=== PATIENT | male | born 1960 | race Caucasian/White ===

== ENCOUNTER 2020-06-24 22:06 | Inpatient (IN) ==
[2020-06-24] MEDS ORDERED: SODIUM CHLORIDE 0.9% 500 ML IV SCH (22:45)
[2020-06-24 22:53] LABS: Basophils # (auto) 0.02 K/uL (0-0.2); Basophils % (auto) 0.1 %; Eosinophils # (auto) 0.07 K/uL (0-0.5); Eosinophils % (auto) 0.5 %; Hematocrit (blood only) 46.1 % (42-52); Hemoglobin 16.4 g/dL (14.0-18.0); Immature Granulocytes # (auto) 0.11 K/uL (0.00-0.02); Immature Granulocytes % (auto) 0.8 %; Lymphocytes # (auto) 1.72 K/uL (1.2-3.4); Lymphocytes % (auto) 12.2 %; Mean Corpuscular Hemoglobin 32.5 pg (25-34); Mean Corpuscular Hgb Conc 35.6 g/dL (32-36); Mean Corpuscular Volume 91.5 fL (80-100); Mean Platelet Volume 11.8 fL (7.4-10.4); Monocytes # (auto) 0.77 K/uL (0.11-0.59); Monocytes % (auto) 5.5 %; Neutrophils # (auto) 11.41 K/uL (1.4-6.5); Neutrophils % (auto) 80.9 %; Platelet Count 196 K/uL (130-400); RDW Coefficient of Variation 13.4 % (11.5-14.5); RDW Standard Deviation 45.3 fL (36.4-46.3); Red Blood Count 5.04 M/uL (4.7-6.1)
[2020-06-24 22:58] LABS: Albumin Level 3.9 gm/dl (3.4-5.0); BUN Creatinine Ratio 10.6 (10-20); Creatinine Clr Calc Pharmacy 90.7 ml/min; Est GFR (African American) 74.2; Potassium 3.4 mmol/L (3.5-5.1)
[2020-06-24 23:01] LABS: Albumin Globulin Ratio 1.1 (0.9-2); Bilirubin,Total 0.3 mg/dl (0.2-1); Globulin 3.5 gm/dl (2.5-4.0); Total Protein 7.4 gm/dl (6.4-8.2)
[2020-06-24 23:03] LABS: Partial Thromboplastin Ratio 0.9; Partial Thromboplastin Time 24.9 Seconds (21.0-31.0); Prothrombin Time 10.8 Seconds (9.0-12.0)
[2020-06-24] MEDS ORDERED: IOVERSOL 100ml IV ONE (23:16)
[2020-06-25] MEDS ORDERED: ACETAMINOPHEN 1,000 MG/100 ML VIAL IV STA (00:01)
[2020-06-25] MEDS ORDERED: OPTIRAY 320 125ml IV ONE (00:46)
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
[2020-06-25] MEDS ORDERED: MoRPHine SULFATE 2 MG/ML CARP IV STA (03:32)
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
[2020-06-25] MEDS ORDERED: NITROGLYCERIN SL 0.4 MG/TAB TAB SL PRN (04:58)
[2020-06-25] MEDS ORDERED: ONDANSETRON INJ 2 MG/ML 2 ML VIAL IV PRN (04:58)
[2020-06-25] MEDS ORDERED: ACETAMINOPHEN 325 MG TAB PO PRN (04:58)
[2020-06-25] MEDS ORDERED: MAGNESIUM HYDROXIDE SUSP 30 ML UDC PO PRN (04:58)
[2020-06-25] MEDS ORDERED: ALUMINUM/MAGNESIUM SUSP 30 ML UDC PO PRN (04:58)
[2020-06-25] MEDS ORDERED: IBUPROFEN 200 MG TAB PO PRN (06:03)
[2020-06-25] MEDS: SODIUM CHLORIDE 0.9% 500 ML IV SCH ×2 (06:19→10:40)
[2020-06-25] MEDS: POTASSIUM ACETATE 10 MEQ in 0.9 % SODIUM CHLORIDE 100 ML IV SCH ×2 (06:32→07:52)
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
[2020-06-25] MEDS: lisinopril 40 MG TAB PO SCH (07:53)
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
[2020-06-25] MEDS: HYDROmorphone INJ 0.5 MG/0.5 ML SYR IV PRN ×3 (09:39→20:10)
[2020-06-25] MEDS: SODIUM CHLORIDE 0.9% 1000ML 1,000 ML IV SCH ×2 (09:40→19:18)
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
--- NOTE | 2020-06-25 12:16 | XRay Report ---
XR lumbar spine 2-3V CLINICAL HISTORY: back pain trauma COMPARISON STUDY: CT scan of 4 06/24/2020 FINDINGS: There is renal contrast excretion secondary to a CT scan performed earlier in the day. Ther e is mild right-sided hydronephrosis and hydroureter. There is contrast within the bladder. There is a superior endplate L2 compression fracture. There are no subluxations. IMPRESSION: 1. Superior endplate L2 compression fracture 2. Mild right-sided hydronephrosis ACT 112: Negative or not required by law. Electronically signed by: Gerardo Mojica M.D. 06/25/2020 12:15 PM
[2020-06-25] MEDS: DOCUSATE SODIUM 100 MG CAP PO SCH ×2 (12:31→20:10)
--- NOTE | 2020-06-25 13:19 | Electrocardiogram Report ---
Test Reason : Blood Pressure : / mmHG Vent. Rate : 072 BPM Atrial Rate : 072 BPM P-R Int : 170 ms QRS Dur : 092 ms QT Int : 424 ms P-R-T Axes : 058 054 026 degrees QTc Int : 464 ms Normal sinus rhythm Possible Left atrial enlargement Borderline ECG No previous ECGs available Confirmed by Gabino Paige ([id number]) on 06/25/2020 1:18:27 PM Referred By: REFERRED SELF Confirmed By:Gabino Paige
--- NOTE | 2020-06-25 22:56 | Billing Data ---
Date of Service June 25, 2020 Coding Level of Care Code 50426 OBS Care - Level 3
[2020-06-25] MEDS: MoRPHine SULFATE 2 MG/ML CARP IV PRN (23:56)
[2020-06-26] MEDS: SODIUM CHLORIDE 0.9% 1000ML 1,000 ML IV SCH ×3 (02:58→18:24)
[2020-06-26] MEDS: MoRPHine SULFATE 2 MG/ML CARP IV PRN ×7 (03:40→22:43)
[2020-06-26 07:15] LABS: Basophils # (auto) 0.01 K/uL (0-0.2); Basophils % (auto) 0.1 %; Eosinophils # (auto) 0.01 K/uL (0-0.5); Eosinophils % (auto) 0.1 %; Hematocrit (blood only) 41.1 % (42-52); Hemoglobin 14.3 g/dL (14.0-18.0); Immature Granulocytes # (auto) 0.01 K/uL (0.00-0.02); Immature Granulocytes % (auto) 0.1 %; Lymphocytes # (auto) 1.06 K/uL (1.2-3.4); Lymphocytes % (auto) 8.5 %; Mean Corpuscular Hemoglobin 31.7 pg (25-34); Mean Corpuscular Hgb Conc 34.8 g/dL (32-36); Mean Corpuscular Volume 91.1 fL (80-100); Mean Platelet Volume 12.1 fL (7.4-10.4); Monocytes # (auto) 1.39 K/uL (0.11-0.59); Monocytes % (auto) 11.2 %; Neutrophils # (auto) 9.95 K/uL (1.4-6.5); Platelet Count 171 K/uL (130-400); RDW Coefficient of Variation 13.4 % (11.5-14.5); RDW Standard Deviation 44.5 fL (36.4-46.3); Red Blood Count 4.51 M/uL (4.7-6.1); White Blood Count 12.43 K/uL (4.8-10.8)
[2020-06-26 07:50] LABS: BUN Creatinine Ratio 13.4 (10-20); Calcium 8.7 mg/dl (8.5-10.1); Est GFR (African American) 101.7; Est GFR (Non-African American) 87.8; Potassium 3.8 mmol/L (3.5-5.1)
[2020-06-26] MEDS: DOCUSATE SODIUM 100 MG CAP PO SCH ×2 (08:41→20:02)
[2020-06-26] MEDS: lisinopril 40 MG TAB PO SCH (08:41)
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
--- NOTE | 2020-06-26 11:08 | Orthopedic Progress Note ---
Date of Service June 26, 2020 Assessment & Plan (1) Compression fracture of lumbar vertebra: Admission and Anticipated Discharge Date Admission Date: June 25, 2020 This time we are awaiting placement of an LSO brace. Once this is secured. I had like to have him undergo physical therapy make sure he is tolerating ambulation pain is controlled bowels working appropriately. At that time he would be good to go home. Subjective Patient complaining primarily of lumbar back pain. No leg pain. He denies any cervicalgia or upper extremity radiculopathy. He has not had a bowel movement at this time. Physical Exam Physical Exam: Patient is in the chair at the bedside. Cervical collar is in place. Is good strength testing of the lower extremities. Results & Data ([facility]) Vital Signs (Past 12 Hours) Vital Signs Temp Pulse Pulse Resp BP BP Pulse Ox 06/26/20 08:47 75 06/26/20 07:32 36.8 C 71 20 168/95 H 93 06/26/20 03:35 36.9 C 80 20 175/94 H 92 06/26/20 00:52 76 (1) Compression fracture of lumbar vertebra Encounter type: initial encounter Lumbar vertebra fracture level: L2 Qualified Code(s): S32.020A - Wedge compression fracture of second lumbar vertebra, initial encounter for closed fracture
--- NOTE | 2020-06-26 11:40 | Ultrasound Report ---
RENAL ULTRASOUND CLINICAL HISTORY: hydronephrosis on XR COMPARISON STUDY: CT of the abdomen and pelvis June 24, 2020. TECHNIQUE: Sonography of the kidneys and the urinary bladder was performed. FINDINGS: Right kidney measures 12.1 cm in maximal dimension and the left measures 12 cm per there is no hydronephrosis. Multiple bilateral renal cysts are noted. Hydronephrosis shown on prior CT has re solved. Both ureteral jets were identified. No urinary calculi are identified. IMPRESSION: 1. No hydronephrosis. 2. Multiple renal cysts. ACT 112: Negative or not required by law. Electronically signed by: Parag Brewer M.D. 06/26/2020 11:38 AM
[2020-06-26] MEDS: HYDROmorphone INJ 0.5 MG/0.5 ML SYR IV PRN (13:47)
[2020-06-26] MEDS ORDERED: MELATONIN 3 MG TAB PO PRN (14:34)
[2020-06-27] MEDS: HYDROmorphone INJ 0.5 MG/0.5 ML SYR IV PRN ×4 (01:37→18:51)
[2020-06-27] MEDS: SODIUM CHLORIDE 0.9% 1000ML 1,000 ML IV SCH ×2 (01:41→07:45)
[2020-06-27] MEDS: MoRPHine SULFATE 2 MG/ML CARP IV PRN ×2 (06:01→22:05)
[2020-06-27 07:30] LABS: Basophils # (auto) 0.02 K/uL (0-0.2); Basophils % (auto) 0.2 %; Eosinophils # (auto) 0.07 K/uL (0-0.5); Eosinophils % (auto) 0.7 %; Hematocrit (blood only) 40.7 % (42-52); Hemoglobin 14.3 g/dL (14.0-18.0); Immature Granulocytes # (auto) 0.02 K/uL (0.00-0.02); Immature Granulocytes % (auto) 0.2 %; Lymphocytes # (auto) 1.11 K/uL (1.2-3.4); Lymphocytes % (auto) 11.2 %; Mean Corpuscular Hemoglobin 31.6 pg (25-34); Mean Corpuscular Hgb Conc 35.1 g/dL (32-36); Mean Platelet Volume 12.2 fL (7.4-10.4); Monocytes # (auto) 1.05 K/uL (0.11-0.59); Monocytes % (auto) 10.6 %; Neutrophils # (auto) 7.63 K/uL (1.4-6.5); Neutrophils % (auto) 77.1 %; Platelet Count 154 K/uL (130-400); RDW Coefficient of Variation 13.1 % (11.5-14.5); RDW Standard Deviation 43.1 fL (36.4-46.3); Red Blood Count 4.52 M/uL (4.7-6.1)
[2020-06-27] MEDS: DOCUSATE SODIUM 100 MG CAP PO SCH ×2 (07:44→20:22)
[2020-06-27] MEDS: lisinopril 40 MG TAB PO SCH (07:44)
[2020-06-27 08:06] LABS: BUN Creatinine Ratio 11.4 (10-20); Calcium 8.8 mg/dl (8.5-10.1); Creatinine Clr Calc Pharmacy 117.6 ml/min; Est GFR (African American) 107.2; Est GFR (Non-African American) 92.5
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
[2020-06-27] MEDS: POLYETHYLENE (MIRALAX) 17 GM PACK PO SCH ×2 (11:30→20:22)
--- NOTE | 2020-06-27 11:40 | Orthopedic Progress Note ---
Date of Service June 27, 2020 Assessment & Plan (1) Compression fracture of lumbar vertebra: Admission and Anticipated Discharge Date Admission Date: June 25, 2020 We are awaiting his LSO brace to be fitted. I would like him up and ambulating when this is complete. It is reasonable for him to ambulate in the room and have bathroom. Subjective Back pain controlled denies any leg pain or neck pain. Physical Exam Physical Exam: Patient has good strength testing. Collar is in place. Results & Data ([facility]) Vital Signs (Past 12 Hours) Vital Signs Temp Pulse Pulse Resp BP BP Pulse Ox 06/27/20 11:19 36.8 C 66 18 159/92 H 91 06/27/20 10:11 61 20 147/89 H 92 06/27/20 07:22 36.7 C 67 18 164/108 H 184/103 H 91 06/27/20 07:11 57 L 06/27/20 03:46 36.8 C 61 16 184/98 H 92 06/26/20 23:47 37.2 C 67 17 171/88 H 90 (1) Compression fracture of lumbar vertebra Encounter type: initial encounter Lumbar vertebra fracture level: L2 Qualified Code(s): S32.020A - Wedge compression fracture of second lumbar vertebra, initial encounter for closed fracture
--- NOTE | 2020-06-27 16:02 | Billing Data ---
Date of Service June 27, 2020 Coding Level of Care Code 41699 Subseq Hosp Care Lvl 2
[2020-06-28] MEDS: MoRPHine SULFATE 2 MG/ML CARP IV PRN (00:39)
[2020-06-28 06:18] LABS: Basophils # (auto) 0.02 K/uL (0-0.2); Basophils % (auto) 0.2 %; Eosinophils # (auto) 0.31 K/uL (0-0.5); Eosinophils % (auto) 3.1 %; Hematocrit (blood only) 43.5 % (42-52); Hemoglobin 15.3 g/dL (14.0-18.0); Immature Granulocytes # (auto) 0.02 K/uL (0.00-0.02); Immature Granulocytes % (auto) 0.2 %; Lymphocytes # (auto) 1.42 K/uL (1.2-3.4); Lymphocytes % (auto) 14.4 %; Mean Corpuscular Hemoglobin 31.5 pg (25-34); Mean Corpuscular Hgb Conc 35.2 g/dL (32-36); Mean Corpuscular Volume 89.5 fL (80-100); Mean Platelet Volume 11.9 fL (7.4-10.4); Monocytes # (auto) 0.83 K/uL (0.11-0.59); Monocytes % (auto) 8.4 %; Neutrophils # (auto) 7.28 K/uL (1.4-6.5); Neutrophils % (auto) 73.7 %; Platelet Count 180 K/uL (130-400); RDW Coefficient of Variation 13.1 % (11.5-14.5); RDW Standard Deviation 43.4 fL (36.4-46.3); Red Blood Count 4.86 M/uL (4.7-6.1); White Blood Count 9.88 K/uL (4.8-10.8)
[2020-06-28 06:48] LABS: Calcium 8.7 mg/dl (8.5-10.1); Creatinine Clr Calc Pharmacy 110.8 ml/min; Est GFR (African American) 103.1; Est GFR (Non-African American) 88.9; Potassium 3.7 mmol/L (3.5-5.1)
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
[2020-06-28 07:54] VITALS: O2SAT 92
[2020-06-28] MEDS: HYDROmorphone INJ 0.5 MG/0.5 ML SYR IV PRN ×2 (08:21→13:28)
[2020-06-28] MEDS: DOCUSATE SODIUM 100 MG CAP PO SCH (08:22)
[2020-06-28] MEDS: lisinopril 40 MG TAB PO SCH (08:22)
[2020-06-28] MEDS: POLYETHYLENE (MIRALAX) 17 GM PACK PO SCH (08:22)
[2020-06-28 11:31] VITALS: BP 154/87; PULSE 60; TEMP 97.7
--- NOTE | 2020-06-28 15:42 | Billing Data ---
Date of Service June 28, 2020 Coding Level of Care Code D/C Day Management <30 mins
== END 2020-06-28 14:00 | disposition home or self-care (01) | DRG 552 ==
LOC: 2W 22:06 → ED 22:06 → 2W 06-25 05:35 → SUATTDRO 06-25 06:01
DX: E87.6 Hypokalemia; K59.00 Constipation, unspecified; D72.829 Elevated white blood cell count, unspecified; F17.210 Nicotine dependence, cigarettes, uncomplicated; S32.020A Wedge compression fracture of second lumbar vertebra, initial encounter for closed fracture; N13.30 Unspecified hydronephrosis; S12.291A Other nondisplaced fracture of third cervical vertebra, initial encounter for closed fracture; F10.929 Alcohol use, unspecified with intoxication, unspecified; V89.2XXA Person injured in unspecified motor-vehicle accident, traffic, initial encounter; I10 Essential (primary) hypertension